=== PATIENT | male | born 1990 | race Caucasian/White ===

== ENCOUNTER 2017-12-12 15:06 | Outpatient (CLI) | payer BC ==
[~2017-12-12 15:06] MED LIST: Gadobenate Dimeglumine 529 MG/1 ML (20ML VIAL) ONE
--- NOTE | 2017-12-12 16:56 | MRI ---
EXAM: MRI OF BRAIN WITHOUT AND WITH CONTRAST 12/12/17 HISTORY: Numbness and tingling down the right side of the body x 1.5 months. COMPARISON: None. TECHNIQUE: Brain MRI is performed without intravenous and with intravenous gadolinium administration. Multiseque ntial, multiplanar imaging is performed. FINDINGS: No hemorrhage on the axial gradient echo sequence. No parenchymal mass, mass effect or midline shift. Brain volume is age appropriate. Cortical ramirez-whi te matter differentiation is preserved. Ventricles and sulci are patent and symmetric. Central arterial flow voids are maintained. Absent res tricted diffusion. Calvarium has a normal marrow signal intensity. Midline grain parenchymal structures are unremarkable . No pathologic enhancement of the brain parenchyma. Adequate aeration of the sinuses and mastoid air cells. No significant T2 or FLAIR white matter hyperintensities. IMPRESSION: Unremarkable pre and postcontrast MRI brain. POS: [facility]
== END 2017-12-12 15:07 | disposition home or self-care (01) ==
LOC: SCSMRI 15:06
PROVIDERS: ATTEND Psychiatry & Neurology Neurology
DX: R20.2 Paresthesia of skin (principal)
CPT/HCPCS: 70553; A9579

== ENCOUNTER 2018-01-27 22:30 | Emergency (ER) | payer BC ==
[2018-01-27 23:03] LABS: #Basophils 0.1 thou/uL (0.0-0.2); #Eosinphils 0.2 thou/uL (0.0-0.7); #Lymphocytes 3.4 thou/uL (1.20-3.40); #Monocytes 1.1 thou/uL (0.11-0.59); #Neutrophils 5.6 thou/uL (1.40-6.50); %Basophils 0.8 % (0.0-1.0); %Eosinophils 1.8 % (0.0-10.0); %Lymphocytes 32.7 % (21.0-51.0); %Monocytes 10.2 % (0.0-10.0); %Neutrophils 54.5 % (42.0-75.0); Hemoglobin 15.9 g/dL (14.0-18.0); Mean Corpuscular Hemoglobin 30.3 pg (27.0-31.0); Mean Corpuscular Volume 86.7 fl (80.0-94.0); Mean Platelet Volume 7.7 fL (7.4-10.4); Platelet Count 249 thou/uL (130-400); RBC Distribution Width 10.9 % (11.5-14.5); Red Blood Cell (RBC) Count 5.25 mill/uL (4.70-6.10); White Blood Cell (WBC) Count 10.3 thou/uL (4.8-10.8)
[2018-01-27 23:27] LABS: ALT (SGPT) 13 U/L (8-55); AST (SGOT) 20 U/L (5-34); Albumin 4.7 g/dL (3.5-5.0); Alkaline Phosphatase 99 U/L (40-150); Anion Gap 13 mmol/L (10-20); BUN (Urea Nitrogen) 7 mg/dL (8.9-20.6); Bilirubin, Total 0.5 mg/dL (0.2-1.2); CK (CPK) 226 U/L (30-200); Calc. Creatinine Clearance 0 mL/min (70-130); Carbon Dioxide 27 mmol/L (22-29); Chloride 102 mmol/L (98-107); Estimated GFR-MDRD Greater than 90; Globulin 2.5 g/dL (2.4-3.5); Glucose 105 mg/dL (70-105); Potassium 3.1 mmol/L (3.5-5.1); Protein, Total 7.2 g/dL (6.0-8.3); Sodium 139 mmol/L (136-145)
[2018-01-27 23:30] LABS: CKMB 1.4 ng/mL (0-6.6); Troponin I Less than 0.010 ng/mL (< 0.028)
[2018-01-28 00:22] LABS: Amphetamine Not Detected (NotDetected); Barbiturates Screen Not Detected (NotDetected); Benzodiazepine Screen Not Detected (NotDetected); Cocaine Metabolite Screen Not Detected (NotDetected); Medtox Reader # READER 1; Methadone Not Detected (NotDetected); Methamphetamine Not Detected (NotDetected); Opiate Screen Not Detected (NotDetected); Oxycodone Screen Not Detected (NotDetected); Phencyclidine (PCP) Not Detected (NotDetected); THC/Cannabinoid Screen Not Detected (NotDetected); Tricyclic Screen Not Detected (NotDetected)
[2018-01-28 00:23] LABS: Medtox Control Line Valid? VALID (VALID)
--- NOTE | 2018-01-28 08:54 | RAD ---
PORTABLE AP CHEST: Date: 01/27/18 HISTORY: Heart palpitations. Chest pain, nonradiating. COMPARISON: None available. FINDINGS: Cardiac silhouette and pulmonary vasculature are within normal limits. The lungs are clear. Osseous s tructures are intact. IMPRESSION: No acute cardiopulmonary process. POS: [facility]
== END 2018-01-28 00:10 | disposition home or self-care (01) ==
LOC: ERS 22:30
DX: R00.2 Palpitations (principal); I47.1 Supraventricular tachycardia
CPT/HCPCS: 36415; 71045; 80053; 80306; 82550; 82553; 84484; 85025; 93005

== ENCOUNTER 2018-06-18 05:18 | Emergency (ER) | payer BC ==
[2018-06-18] MEDS ORDERED: Adenosine 6 MG/2 ML VIAL ONE ×2 (05:29→08:01)
[2018-06-18 06:05] LABS: ALT (SGPT) 15 U/L (8-55); AST (SGOT) 22 U/L (5-34); Albumin 5.2 g/dL (3.5-5.0); Alkaline Phosphatase 93 U/L (40-150); Anion Gap 15 mmol/L (10-20); BUN (Urea Nitrogen) 16 mg/dL (8.9-20.6); Bilirubin, Total 0.7 mg/dL (0.2-1.2); CK (CPK) 203 U/L (30-200); Calc. Creatinine Clearance 0 mL/min (70-130); Calcium 10.3 mg/dL (7.8-10.44); Carbon Dioxide 23 mmol/L (22-29); Chloride 101 mmol/L (98-107); Estimated GFR-MDRD Greater than 90; Glucose 115 mg/dL (70-105); Protein, Total 8.2 g/dL (6.0-8.3); Sodium 136 mmol/L (136-145)
[2018-06-18 06:07] LABS: #Basophils 0.1 thou/uL (0.0-0.2); #Eosinphils 0.3 thou/uL (0.0-0.7); #Lymphocytes 4.5 thou/uL (1.20-3.40); #Monocytes 1.1 thou/uL (0.11-0.59); #Neutrophils 4.7 thou/uL (1.40-6.50); %Basophils 1.1 % (0.0-1.0); %Eosinophils 3.2 % (0.0-10.0); %Monocytes 10.1 % (0.0-10.0); %Neutrophils 43.7 % (42.0-75.0); Hemoglobin 15.6 g/dL (14.0-18.0); Mean Corpuscular HGB CONC 33.3 g/dL (32.0-36.0); Mean Corpuscular Hemoglobin 29.2 pg (27.0-31.0); Mean Corpuscular Volume 87.6 fL (78.0-98.0); Mean Platelet Volume 8.4 fL (7.4-10.4); Platelet Count 246 thou/uL (130-400); RBC Distribution Width 11.7 % (11.5-14.5); Red Blood Cell (RBC) Count 5.34 mill/uL (4.70-6.10); White Blood Cell (WBC) Count 10.7 thou/uL (4.8-10.8)
[2018-06-18 06:09] LABS: CKMB 1.6 ng/mL (0-6.6); Troponin I Less than 0.010 ng/mL (< 0.028)
[2018-06-18] MEDS ORDERED: Potassium Chloride 20 MEQ TAB ONE (06:35)
--- NOTE | 2018-06-18 07:41 | RAD ---
CHEST 1 VIEW: COMPARISON: 01/27/18. HISTORY: Dyspnea. FINDINGS: Normal cardiac silhouette. Lungs and pleural spaces are clear. No pneumothorax or osseous abnormali ties. IMPRESSION: No acute cardiopulmonary process. POS: [facility]
== END 2018-06-18 07:09 | disposition home or self-care (01) ==
LOC: ERS 05:18
DX: I47.1 Supraventricular tachycardia (principal); I49.9 Cardiac arrhythmia, unspecified; Z79.899 Other long term (current) drug therapy
CPT/HCPCS: 71045; 80053; 82550; 82553; 84443; 84484; 85025; 93005; 94760; 96361; 96374; J0153

== ENCOUNTER 2018-06-19 23:24 | Emergency (ER) | payer BC | END 2018-06-20 01:04 | disposition home or self-care (01) | LOC: ERS 23:24 | DX: R00.2 Palpitations (principal); I47.1 Supraventricular tachycardia; I49.9 Cardiac arrhythmia, unspecified; Z79.899 Other long term (current) drug therapy; Z77.22 Contact with and (suspected) exposure to environmental tobacco smoke (acute) (chronic) | CPT/HCPCS: 93005 ==

== ENCOUNTER 2018-08-03 13:21 | Emergency (ER) | payer BC | END 2018-08-03 14:20 | disposition home or self-care (01) | LOC: ERS 13:21 | DX: I47.1 Supraventricular tachycardia (principal); F17.220 Nicotine dependence, chewing tobacco, uncomplicated; Z79.899 Other long term (current) drug therapy | CPT/HCPCS: 93005; 99284 ==

== ENCOUNTER 2018-08-06 14:51 | Outpatient (CLI) | payer BC ==
[2018-08-06 15:44] LABS: Mean Corpuscular HGB CONC 33.1 g/dL (32.0-36.0); Mean Corpuscular Volume 87.6 fL (78.0-98.0); Mean Platelet Volume 7.9 fL (7.4-10.4); Platelet Count 238 thou/uL (130-400); RBC Distribution Width 10.8 % (11.5-14.5); White Blood Cell (WBC) Count 7.3 thou/uL (4.8-10.8)
[2018-08-06 15:50] LABS: PTT 29.6 SEC (22.9-36.1); Prothrombin Time 12.9 SEC (12.0-14.7)
[2018-08-06 16:00] LABS: Anion Gap 11 mmol/L (10-20); BUN (Urea Nitrogen) 8 mg/dL (8.9-20.6); Calc. Creatinine Clearance 0 mL/min (70-130); Calcium 9.9 mg/dL (7.8-10.44); Carbon Dioxide 27 mmol/L (22-29); Chloride 104 mmol/L (98-107); Estimated GFR-MDRD Greater than 90; Glucose 103 mg/dL (70-105); Potassium 3.7 mmol/L (3.5-5.1); Sodium 138 mmol/L (136-145)
--- NOTE | 2018-08-07 12:52 | EKG ---
Test Reason : Blood Pressure : / mmHG Vent. Rate : 079 BPM Atrial Rate : 092 BPM P-R Int : 164 ms QRS Dur : 092 ms QT Int : 354 ms P-R-T Axes : 062 086 069 degrees QTc Int : 405 ms Sinus rhythm with marked sinus arrhythmia Incomplete right bundle branch block Abnormal ECG Confirmed by COLLEEN MOE ([id number]) on 08/07/2018 12:52:10 PM Referred By: OSCAR Confirmed By:COLLEEN MOE
== END 2018-08-06 14:52 | disposition home or self-care (01) ==
LOC: LABBT 14:51
PROVIDERS: ATTEND Internal Medicine Cardiovascular Disease
DX: Z01.818 Encounter for other preprocedural examination (principal); I47.1 Supraventricular tachycardia
CPT/HCPCS: 80048; 85027; 85610; 85730; 93005; 93010

== ENCOUNTER 2018-08-20 05:42 | Observation (INO) | payer BC ==
[2018-08-06 15:24] VITALS: BMI 19.7
[2018-08-20] MEDS ORDERED: Lidocaine 1% (PF) 30 ML VIAL ONE (06:35)
[2018-08-20] MEDS ORDERED: Heparin 10,000 UNITS/1 ML VIAL ONE ×3 (06:37→08:42)
[2018-08-20] MEDS ORDERED: Midazolam HCl 2 mg/2 ml Vial ONE (07:23)
[2018-08-20] MEDS ORDERED: Propofol 500 MG/50 ML VIAL ONE ×4 (07:58→09:17)
[2018-08-20] MEDS ORDERED: PHENYLEPHRINE-NS 100 MCG/ML 10 ML SYRINGE ONE ×2 (08:36→14:34)
[2018-08-20] MEDS ORDERED: Heparin 25,000 units/D5W 500 ML ONE (08:57)
[2018-08-20] MEDS ORDERED: Phenylephrine HCL 10 MG/ML VIAL ONE (09:00)
[2018-08-20] MEDS ORDERED: Isoproterenol 0.2 MG/1 ML AMP ONE (09:30)
[2018-08-20] MEDS ORDERED: Protamine Sulfate 50 MG/5 ML VIAL ONE (10:01)
[2018-08-20] MEDS ORDERED: Acetaminophen/Codeine 30-300mg Tablet PO PRN ×2 (10:55)
--- NOTE | 2018-08-20 11:50 | OP ---
DATE OF PROCEDURE: 08/20/2018 PROCEDURE: Electrophysiology study and radiofrequency ablation. SURGEON: Dr. Kiran Walker REFERRING PHYSICIAN: Dr. Timoteo Cobb REASON FOR PROCEDURE: Mr. Perez is a 28-year-old man with history of palpitations for the last 9 years. He has EKG documented narrow complex SVT terminated with adenosine in the ER. He is here SVT ablation. PROCEDURE: The patient received propofol by Anesthesia specialist for deep sedation. After adequate level of sedation achieved, the left and right femoral venous area was prepped and draped and anesthetized using subcutaneous lidocaine. On the left side a 6 and 8 Icelandic short sheath was introduced through which a decapolar CS catheter and octapolar His bundle catheter was advanced to the RV, RA, His bundle and CS positions. Pacing mapping and recording was performed in each location. Following that a basic EP study was performed with the following findings. Baseline cycle length 751 milliseconds in sinus rhythm, SC 181 milliseconds, QRS 68 milliseconds, QT 863 milliseconds, AH 131 milliseconds, HV 52 milliseconds. AV Wenckebach cycle length 300 milliseconds, retrograde Wenckebach 300 milliseconds. No dual AV node physiology was seen with AV jacoby ERP measured to be 69/28. On access to my testing on a VA conduction eccentric VA conduction was seen. With CS 5-6 position was the earliest activation with a pathway potential present. During burst atrial pacing with catheter manipulation as well as access to my testing in the atrium we were able to induce a narrow complex tachycardia with a cycle length of 260 milliseconds, a cycle length of 356 milliseconds. The VA timing of 60 milliseconds with earliest atrial activation with 'CS 5-6 pole' area. Burst overdrive ventricular pacing terminated the arrhythmia every single time. Following that, the right femoral venous area was accessed and an 11-Icelandic sheath as well as a SL2 sheath was introduced. Under ice catheter monitoring we performed a transseptal procedure with the [place] power needle. Following that, the heparin was introduced and drape was performed as well as was administered to keep the ACT over 350 throughout the procedure. Following that a ThermoCool SF ST catheter was advanced to the left atrium, 3D map of left atrium obtained. Following that, an activation map during ventricular pacing and tachycardia was performed. The earliest activation was mapped close to the CS 5-6 catheter. the first 1.5 second in this area eliminated eccentric conduction and total of 1 min and 6 second Ablation @ 40 W delivered. No re-inducibility of the AVRT tachycardia was seen after. Isuprel was also administered at the end of the case and no significant changes noted. The patient remained stable. Cardiac silhouette did not change. No complications noted. The heparin was reversed with protamine. Catheter was removed and the catheter and sheath were removed in the medical laboratory technologist. Conclusion: 1. 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 2. Ablation of AAVC eliminated inducibility of AVRT and excentric retrograde VA conduction. 3. Normal Sinus and AV jacoby function. Plan: 1. Overnight obs. 2. Stop Diltiazem. MTDD
[2018-08-20] MEDS ORDERED: PROPOFOL 200 MG/20 ML VIAL ONE (14:34)
[2018-08-20] MEDS ORDERED: Heparin 10,000 UNITS/ 10 ML VIAL ONE (14:34)
[2018-08-20] MEDS ORDERED: traZODone HCl 50 MG TAB PO SCH (21:00)
--- NOTE | 2018-08-21 08:51 | EKG ---
Test Reason : POST ABLATION Blood Pressure : / mmHG Vent. Rate : 084 BPM Atrial Rate : 084 BPM P-R Int : 146 ms QRS Dur : 080 ms QT Int : 350 ms P-R-T Axes : 062 079 064 degrees QTc Int : 413 ms Normal sinus rhythm Early repolarization Normal ECG When compared with ECG of 06-AUG-2018 15:10, No significant change was found Confirmed by DR. Donovan NEWMAN ([id number]) on 08/21/2018 8:51:30 AM Referred By: OSCAR Confirmed By:DR. Donovan NEWMAN
[2018-08-21 11:45] VITALS: BP 109/58; TEMP 98.7
--- NOTE | 2018-08-21 12:55 | DIS ---
DATE OF ADMISSION: 08/20/2018 DATE OF DISCHARGE: 08/21/2018 ADMITTING PHYSICIAN: Kiran Walker M.D. DIAGNOSIS: Supraventricular tachycardia, left-sided accessory pathway. CONDITION ON DISCHARGE: Stable. PROCEDURES PERFORMED: Include a comprehensive EP testing and mapping with ablation of accessory path way HISTORY OF PRESENT ILLNESS: Mr. Perez is a pleasant 28-year-old gentleman, known to our practice a fter being referred for a supraventricular tachycardia. He is admitted for an elective EP study and ablation yesterday, at which point he was found to be inducible for AV reentrant tachycardia utilizin g a concealed left posterolateral AAVC. He underwent ablation of AAVC, which eliminated inducibility of the AVRT and the eccentric retrograde VA conduction. He was found to have normal sinus and AV no dorene function. He was kept overnight for observation after he was heparinized and sheaths were remove d. His rhythm has been stable overnight. He has not had any postoperative complications. He denies any heart racing, palpitations, chest pain, pressure, syncope, near syncope, stroke, or stroke-like symptoms. He does report that there is some mild tenderness upon palpation to his bilateral groin si shawna, but otherwise he is without cardiac concern or complaint today. OBJECTIVE: MOST RECENT VITAL SIGNS: Temperature 98.7, pulse 67, blood pressure 109/58, respirations 15, oxygen is 97% on room air. GENERAL: The patient is alert and oriented. Speech is clear. Affect is appropriate. NEUROLOGIC EXAM: Grossly intact and nonfocal. HEART: Rate is regularly regular without significant murmur, rub, or gallop. LUNGS: Clear to auscultation. EXTREMITIES: Bilateral groin sites are stable without hematoma. Dressings are clean, dry, and intac t and maybe removed 24 hours post-procedure. Bilateral lower extremities are warm and dry without cl ubbing, cyanosis, or edema. Strong pulses with well perfused extremities. Capillary refill less yomi n 3 seconds. DATABASE: Telemetry and EKGs reveal normal sinus rhythm. DISCHARGE INSTRUCTIONS: Discontinue diltiazem, start aspirin 81 mg daily x7 days, light duty with no lifting more than 15 pounds x1 week. Follow up with [facility] in 4-6 weeks or sooner as symptoms d ictate.
--- NOTE | 2018-08-21 15:00 | EKG ---
Test Reason : Blood Pressure : / mmHG Vent. Rate : 060 BPM Atrial Rate : 060 BPM P-R Int : 148 ms QRS Dur : 084 ms QT Int : 372 ms P-R-T Axes : 021 064 040 degrees QTc Int : 372 ms Normal sinus rhythm Normal ECG When compared with ECG of 20-AUG-2018 11:16, (Unconfirmed) No significant change was found Confirmed by DR. Donovan NEWMAN ([id number]) on 08/21/2018 2:59:57 PM Referred By: OSCAR Confirmed By:DR. Donovan NEWMAN
== END 2018-08-21 13:16 | disposition home or self-care (01) ==
LOC: CCL 05:42 → 2SW 12:13
PROVIDERS: ADMIT Internal Medicine Cardiovascular Disease; ATTEND Internal Medicine Cardiovascular Disease
PROC: 02583ZZ Destruction of Conduction Mechanism, Percutaneous Approach (ICD-10-PCS; principal; 2018-08-21)
PROC: 02K83ZZ Map Conduction Mechanism, Percutaneous Approach (ICD-10-PCS; 2018-08-21)
DX: I47.1 Supraventricular tachycardia (principal); Z88.1 Allergy status to other antibiotic agents
CPT/HCPCS: 76942; 93005; 93010; 93462; 93613; 93623; 93653; 93662; 93798; C1730; C1759; C1769; G0378; J1644; J2001; J2250; J2370; J2704; J2720

== ENCOUNTER 2018-09-10 09:51 | Emergency (ER) | payer BC ==
[2018-09-10 10:18] LABS: #Basophils 0.1 thou/uL (0.0-0.2); #Eosinphils 0.2 thou/uL (0.0-0.7); #Lymphocytes 3.5 thou/uL (1.20-3.40); #Neutrophils 5.1 thou/uL (1.40-6.50); %Basophils 1.2 % (0.0-1.0); %Eosinophils 1.9 % (0.0-10.0); %Monocytes 10.2 % (0.0-10.0); %Neutrophils 51.8 % (42.0-75.0); Hemoglobin 16.4 g/dL (14.0-18.0); Mean Corpuscular HGB CONC 34.4 g/dL (32.0-36.0); Mean Corpuscular Hemoglobin 29.4 pg (27.0-31.0); Mean Corpuscular Volume 85.7 fL (78.0-98.0); Mean Platelet Volume 8.3 fL (7.4-10.4); Platelet Count 267 thou/uL (130-400); Red Blood Cell (RBC) Count 5.56 mill/uL (4.70-6.10); White Blood Cell (WBC) Count 9.9 thou/uL (4.8-10.8)
[2018-09-10 10:48] LABS: ALT (SGPT) 12 U/L (8-55); AST (SGOT) 19 U/L (5-34); Albumin 5.1 g/dL (3.5-5.0); Alkaline Phosphatase 101 U/L (40-150); Anion Gap 15 mmol/L (10-20); BUN (Urea Nitrogen) 15 mg/dL (8.9-20.6); Bilirubin, Total 0.6 mg/dL (0.2-1.2); CK (CPK) 103 U/L (30-200); Calc. Creatinine Clearance 0 mL/min (70-130); Calcium 10.5 mg/dL (7.8-10.44); Carbon Dioxide 23 mmol/L (22-29); Chloride 102 mmol/L (98-107); Estimated GFR-MDRD Greater than 90; Globulin 2.6 g/dL (2.4-3.5); Glucose 122 mg/dL (70-105); Lipase 28 U/L (8-78); Potassium 3.8 mmol/L (3.5-5.1); Protein, Total 7.7 g/dL (6.0-8.3); Sodium 136 mmol/L (136-145)
--- NOTE | 2018-09-10 10:50 | RAD ---
FRONTAL RADIOGRAPH CHEST PORTABLE UPRIGHT: Date: 09-10-18 Comparison: 06-18-18 History: Tachycardia. FINDINGS: Heart and mediastinal contours are stable. No pneumothorax, pleural fluid, focal consolidation, or al veolar edema. IMPRESSION: No acute findings. POS: [facility]
[2018-09-10 10:57] LABS: Troponin I Less than 0.010 ng/mL (< 0.028)
== END 2018-09-10 11:44 | disposition home or self-care (01) ==
LOC: ERS 09:51
DX: R00.2 Palpitations (principal); Z71.6 Tobacco abuse counseling; F17.220 Nicotine dependence, chewing tobacco, uncomplicated
CPT/HCPCS: 36415; 71045; 80053; 82553; 83690; 84443; 84484; 85025; 93005; 94760; 96360; 99406

== ENCOUNTER 2019-03-26 13:06 | Outpatient (CLI) | payer OTHER | END 2019-03-26 13:07 | disposition home or self-care (01) | LOC: DTY/OP 13:06 | PROVIDERS: ATTEND Family Medicine | DX: E55.9 Vitamin D deficiency, unspecified (principal); I47.1 Supraventricular tachycardia; G47.00 Insomnia, unspecified | CPT/HCPCS: 97802 ==

== ENCOUNTER 2022-09-19 15:09 | Outpatient (CLI) | payer BC ==
[2022-09-19 16:02] LABS: #Basophils 0.1 10x3/uL (0.0-0.2); #Eosinphils 0.3 10x3/uL (0.0-0.5); #Neutrophils 3.8 10x3/uL (1.5-8.4); %Basophils 0.6 % (0.0-2.0); %Eosinophils 3.4 % (0.0-6.0); %Lymphocytes 36.5 % (18.0-47.0); %Monocytes 12.2 % (0.0-10.0); %Neutrophils 46.7 % (40.0-75.0); Hemoglobin 15.4 g/dL (13.5-17.5); Mean Corpuscular HGB CONC 34.9 g/dL (32.0-36.0); Mean Platelet Volume 10.9 fl (7.4-10.4); Platelet Count 257 10x3/uL (150-450); RBC Distribution Width 11.6 % (11.5-14.5); Red Blood Cell (RBC) Count 5.13 10x6/uL (4.32-5.72); White Blood Cell (WBC) Count 8.1 10x3/uL (3.5-10.5)
[2022-09-19 16:30] LABS: ALT (SGPT) 11 U/L (8-55); AST (SGOT) 16 U/L (5-34); Albumin 4.6 g/dL (3.5-5.0); Alkaline Phosphatase 81 U/L (40-110); Anion Gap 13 mmol/L (10-20); BUN (Urea Nitrogen) 18 mg/dL (8.9-20.6); Bilirubin, Total 0.6 mg/dL (0.2-1.2); Calc. Creatinine Clearance 0 mL/min (70-130); Carbon Dioxide 27 mmol/L (22-29); Chloride 103 mmol/L (98-107); Estimated GFR 120; Globulin 2.5 g/dL (2.4-3.5); Glucose 85 mg/dL (70-105); Potassium 4.1 mmol/L (3.5-5.1); Protein, Total 7.1 g/dL (6.0-8.3); Sodium 139 mmol/L (136-145)
== END 2022-09-19 15:10 | disposition home or self-care (01) ==
LOC: LABBT 15:09
PROVIDERS: ATTEND Specialist
DX: Z01.812 Encounter for preprocedural laboratory examination (principal); K80.10 Calculus of gallbladder with chronic cholecystitis without obstruction
CPT/HCPCS: 80053; 85025

== ENCOUNTER 2024-08-11 17:49 | Emergency (ER) | payer BC ==
[2024-08-11 18:56] LABS: #Basophils 0.07 10x3/uL (0.0-0.2); %Basophils 0.9 % (0.0-1.0); %Eosinophils 3.7 % (0.0-10.0); %Lymphocytes 26.7 % (21.0-51.0); %Monocytes 11.1 % (0.0-10.0); %Neutrophils 57.2 % (42.0-75.0); Hematocrit 43.8 % (42.0-52.0); Hemoglobin 14.9 g/dL (14.0-18.0); Mean Corpuscular Hemoglobin 29.6 pg (27.0-31.0); Mean Corpuscular Volume 86.9 fL (78.0-98.0); Mean Platelet Volume 10.4 fL (7.4-10.4); Platelet Count 261 10x3/uL (130-400); RBC Distribution Width 11.8 % (11.5-14.5); Red Blood Cell (RBC) Count 5.04 mill/uL (4.70-6.10)
[2024-08-11 19:24] LABS: Anion Gap 14 mmol/L (10-20); BUN (Urea Nitrogen) 5 mg/dL (8.9-20.6); Calc. Creatinine Clearance 0 mL/min (70-130); Carbon Dioxide 27 mmol/L (22-29); Chloride 103 mmol/L (98-107); Sodium 140 mmol/L (136-145)
[2024-08-11 19:25] LABS: ALT (SGPT) 12 U/L (8-55); AST (SGOT) 17 U/L (5-34); Albumin 4.4 g/dL (3.5-5.0); Alkaline Phosphatase 87 U/L (40-110); Bilirubin, Total 0.5 mg/dL (0.2-1.2); Calcium 9.5 mg/dL (7.8-10.44); Estimated GFR 119; Globulin 2.8 g/dL (2.4-3.5); Glucose 93 mg/dL (70-105); Protein, Total 7.2 g/dL (6.0-8.3)
[2024-08-11 19:28] LABS: Troponin I Less than 0.010 ng/mL (< 0.028)
== END 2024-08-11 20:30 | disposition home or self-care (01) ==
LOC: ERS 17:49
DX: R00.0 Tachycardia, unspecified (principal); F17.210 Nicotine dependence, cigarettes, uncomplicated
CPT/HCPCS: 36415; 80053; 83735; 84484; 85025; 93005; 99285